=== PATIENT | female | born 1975 | race Hispanic/Latino ===

== ENCOUNTER 2017-07-18 19:27 | Observation (INO) | payer OTHER ==
[~2017-07-18] VITALS: Ht 162.6 cm; Wt 81.7 kg
[2017-07-18 21:06] LABS: BASOPHIL (%) 0.5 % (0-1); BASOPHIL COUNT 0.1 K/uL (0-0.1); EOSINOPHIL COUNT 0.1 K/uL (0-0.3); HEMATOCRIT 34.4 % (36.0-46.0); HEMOGLOBIN 12.2 G/DL (11.9-15.5); IMMATURE GRANULOCYTE (%) 0.3 % (0.0-0.7); LYMPHOCYTE (%) 30.9 % (15-42); MCH 30.7 PG (29.0-34.0); MCHC 35.5 G/DL (30.0-36.0); MCV 86.4 FL (83-99); MONOCYTE (%) 8.2 % (3-12); MONOCYTE COUNT 0.8 K/uL (0-0.8); NEUTROPHIL (%) 59.1 % (45-76); NEUTROPHIL COUNT 5.7 K/uL (1.8-6.4); PLATELET COUNT 237 K/uL (156-360); RBC DIS.WIDTH-CV 12.5 % (11.8-14.6); RBC DIS.WIDTH-SD 39.8 % (39-53); RED BLOOD COUNT 3.98 M/uL (3.80-5.20); WHITE BLOOD COUNT 9.6 K/uL (4.1-10.2)
[2017-07-18 21:13] LABS: INTER. NORMALIZED RATIO 1.1
[2017-07-18 21:16] LABS: PTT 26.3 SEC (25-37)
[2017-07-18 21:18] LABS: CHLORIDE 109 mEq/L (99-109); SODIUM 141 mEq/L (136-147)
[2017-07-18 21:20] LABS: GLUCOSE 104 mg/dL (70-99)
[2017-07-18 21:23] LABS: SERUM ETHYL ALCOHOL < 10 mg/dL
[2017-07-18 21:24] LABS: CREATININE 0.9 mg/dL (0.6-1.3)
[2017-07-18 21:25] LABS: UREA NITROGEN (BUN) 12 mg/dL (9-23)
[2017-07-18 21:32] LABS: QUANTITATIVE HCG < 4.0 MIU/ML
[2017-07-18 21:36] LABS: ERTH.SED.RATE 21 MM/HR (0-20)
[2017-07-18 21:38] LABS: GFR ESTIMATE (CALCULATED) > 59 mL/min/
[2017-07-18 22:21] LABS: HDL CHOLESTEROL 45 MG/DL (Desirable>=50); LDL CHOLESTEROL 80 mg/dL (Desirable<100); NON-HDL CHOLESTEROL 97 mg/dL (Desirable<160); TOTAL CHOLESTEROL 142 mg/dL (Desirable<200); TRIGLYCERIDES 86 MG/DL (Normal: <150)
[2017-07-18 22:28] LABS: THYROTROPIN (TSH) 2.2 MIU/L (0.4-5.5)
[2017-07-18] MEDS ORDERED: ALEVE220 MG PO (23:30)
[2017-07-18] MEDS ORDERED: B-COMPLEX-VITA1 EACH PO (23:31)
[2017-07-19] VITALS (7 sets, daily range): BP systolic 108–134; BP diastolic 56–76
[2017-07-19 00:45] LABS: AMPHETAMINE NEGATIVE (500 ng/mL); BARBITURATES NEGATIVE (200 ng/mL); BENZODIAZEPINES NEGATIVE (150 ng/mL); BUPRENORPHINE NEGATIVE (10 ng/mL); COCAINE NEGATIVE (150 ng/mL); METHADONE NEGATIVE (200 ng/mL); METHAMPHETAMINE NEGATIVE (500 ng/mL); OPIATES (MORPHINE) NEGATIVE (100 ng/mL); OXYCODONE NEGATIVE (100 ng/mL); PHENCYCLIDINE NEGATIVE (25 ng/mL); PROPOXYPHENE NEGATIVE (300 ng/mL); THC CANNABINOIDS NEGATIVE (50 ng/mL); TRICYCLIC ANTIDEPRESSANTS NEGATIVE (300 ng/mL)
[2017-07-19 07:44] LABS: APPEARANCE CLEAR ((CLEAR)); BILIRUBIN NEGATIVE; BLOOD NEGATIVE; COLOR STRAW ((YELLOW)); GLUCOSE (STRIP) NEGATIVE; KETONES NEGATIVE; LEUKOCYTES NEGATIVE; NITRITE NEGATIVE; PROTEIN (STRIP) NEGATIVE; SPECIFIC GRAVITY 1.013 (1.000-1.030); UCUL ADDED? NO; UROBILINOGEN 0.2 MG/DL (0.2-1.0)
[2017-07-19 08:54] LABS: IRON 129 MCG/DL (35-150); TRANSFERRIN (TIBC) 278.3 mg/dL (215-380); TRANSFERRIN SATUR. 46 % (20-55)
[2017-07-19 10:19] LABS: HEMOGLOBIN A1c (GLYCOHEMOGLOB) 5.4 % (Below 5.7)
[2017-07-20 04:23] VITALS: BP 109/60
[2017-07-20 07:52] VITALS: BP 120/61
== END 2017-07-20 10:00 | disposition home or self-care (01) ==
LOC: EME 19:27 → EDOF 07-19 00:01 → 4SOUTH 07-19 00:01 → EDOF 07-19 00:01 → ENRESERV 07-19 00:09 → 4SOUTH 07-19 02:17
PROVIDERS: Emergency Medicine; Hospitalist; Physician Assistant Medical
DX: R20.2 Paresthesia of skin (principal); G43.909 Migraine, unspecified, not intractable, without status migrainosus; H53.8 Other visual disturbances; R29.810 Facial weakness; R06.02 Shortness of breath; R05 Cough; R13.10 Dysphagia, unspecified; G89.29 Other chronic pain; R10.9 Unspecified abdominal pain; Z86.19 Personal history of other infectious and parasitic diseases; Z68.30 Body mass index [BMI] 30.0-30.9, adult
CPT/HCPCS: 70450; 70551; 71046; 80048; 80061; 80306 90; 81003; 83036; 83540; 84443; 84466; 84702; 85025; 85610; 85651; 85730; 86038; 86235; 93005; 93306; 93880; 99281; 99285; G0378; G0480; J7030